=== PATIENT | female | born 1955 | race African-American/Black ===

== ENCOUNTER 2024-02-27 18:57 | Emergency (ER) | payer MEDICARE, OTHER ==
[~2024-02-27] VITALS: Ht 167.6 cm; Wt 71.4 kg
[~2024-02-27 18:57] MED LIST: RISP3TAB35 PO; VALP250S19 PO
[2024-02-27 19:18] VITALS: BP 115/89; PULSE 92; RESP 20; TEMP 97.9; O2SAT 99
== END 2024-02-28 01:41 | disposition short-term general hospital (02) ==
LOC: EMS 18:57
DX: S00.83XA Contusion of other part of head, initial encounter (principal); F20.0 Paranoid schizophrenia; I10 Essential (primary) hypertension; J44.9 Chronic obstructive pulmonary disease, unspecified; F10.20 Alcohol dependence, uncomplicated; F14.90 Cocaine use, unspecified, uncomplicated; Z88.8 Allergy status to other drugs, medicaments and biological substances; Y08.89XA Assault by other specified means, initial encounter; Y93.89 Activity, other specified; Y92.89 Other specified places as the place of occurrence of the external cause; Y99.8 Other external cause status
CPT/HCPCS: 70450; 70486; 72125; 99285